=== PATIENT | female | born 1980 | race Caucasian/White ===

== ENCOUNTER 2020-11-26 19:10 | Emergency (ER) | payer BC ==
[~2020-11-26] VITALS: Ht 149.9 cm; Wt 54.4 kg
[2020-11-26 19:14] VITALS: BP 131/69
[2020-11-26 20:42] LABS: APPEARANCE,URINE CLEAR (CLEAR); BILIRUBIN,URINE NEGATIVE (NEGATIVE); BLOOD, URINE NEGATIVE (NEGATIVE); COLOR,URINE YELLOW (YELLOW); LEUKOCYTE ESTERASE ,URINE 1+ (NEGATIVE); NITRITE, URINE NEGATIVE (NEGATIVE); UGLUCOSE NEGATIVE (NEGATIVE)
[2020-11-26 20:55] LABS: RBC,URINE 0-5 /HPF (0-5)
[2020-11-26 21:02] LABS: BASOPHILS % (AUTO) 0.4 % (0.0-2.0); EOSINOPHILS % (AUTO) 0.5 % (0.0-4.0); HEMATOCRIT 36.3 % (36-48); HEMOGLOBIN 11.8 g/dL (12.0-16.0); LYMPHOCYTES # (AUTO) 2.8 K/uL (2.5-16.5); MEAN CORPUSCULAR HEMOGLOBIN 28 pg (27-31); MEAN CORPUSCULAR HGB CONC 33 g/dL (33-37); MEAN CORPUSCULAR VOLUME 84.8 fL (80-94); MONOCYTES # (AUTO) 0.7 K/uL (0.8-1.0); MONOCYTES % (AUTO) 7.3 % (1.7-9.3); NEUTROPHILS # (AUTO) 5.5 K/uL (1.8-7.7); NEUTROPHILS % (AUTO) 60.8 % (42.2-75.2); PLATELET COUNT (AUTO) 335 K/uL (140-450); RED BLOOD CELL COUNT(AUTO) 4.28 MIL/uL (4.20-5.40); RED CELL DISTRIBUTION WIDTH 14.3 % (11.6-13.7)
[2020-11-26 21:18] LABS: ALBUMIN 3.7 g/dL (3.4-5.0); ANION GAP 11.7 (8-16); CREATININE 0.9 mg/dL (0.6-1.3); POTASSIUM 3.7 mmol/L (3.5-5.1); TOTAL BILIRUBIN 0.2 mg/dL (0.0-1.0)
[2020-11-26] MEDS ORDERED: IBUPROFEN 600 MG TAB PO ONE (22:55)
[2020-11-27] MEDS ORDERED: cefTRIAXone 500 MG in LIDOCAINE MPF 1% 1 ML IM ONE (00:05)
[2020-11-27] MEDS ORDERED: cefTRIAXone 500 MG VIAL ONE (00:11)
[2020-11-27] MEDS ORDERED: LIDOCAINE MPF 1% 5 ML ONE (00:12)
[2020-11-27 00:49] VITALS: BP 113/59
== END 2020-11-27 00:49 | disposition home or self-care (01) ==
LOC: MED 19:10
DX: N76.0 Acute vaginitis (principal); B96.89 Other specified bacterial agents as the cause of diseases classified elsewhere; Z88.0 Allergy status to penicillin; Z88.1 Allergy status to other antibiotic agents; Z88.8 Allergy status to other drugs, medicaments and biological substances
CPT/HCPCS: 36415; 74177; 76856; 80053; 81001; 81025; 83690; 85025; 87086; 87210; 93976; 96372; 99285; J0696; J2001; Q9967; 87491

== ENCOUNTER 2020-12-06 12:37 | Emergency (ER) | payer BC ==
[~2020-12-06] VITALS: Ht 149.9 cm; Wt 53.5 kg
[2020-12-06 12:58] VITALS: BP 102/73
--- NOTE | 2020-12-06 13:00 | NUR ---
C/O RIGHT KNEE PAIN 4/10 & SWELLING X 2 DAYS. DENIES TRAUMA. PT GOT COVID VACCINE 2ND DOSE. PMH: DENIES
--- NOTE | 2020-12-06 13:06 | NUR ---
PT AMB TO [facility]
--- NOTE | 2020-12-06 13:25 | NUR ---
Patient returned from x-ray.
[2020-12-06] MEDS ORDERED: IBUPROFEN 600 MG TAB PO ONE (13:45)
--- NOTE | 2020-12-06 14:39 | NUR ---
PT AMB TO BED 11.
--- NOTE | 2020-12-06 15:46 | NUR ---
applied knee immobilizer without any issues. pt demonstrated proper use of crutches
[2020-12-06 17:01] VITALS: BP 102/73
--- NOTE | 2020-12-06 17:02 | NUR ---
Patient discharged with v/s stable. Written and verbal after care instructions given and explained. Patient verbalized understanding. Ambulatory with steady gait. All questions addressed prior to discharge. Advised to follow up with PMD.
== END 2020-12-06 17:02 | disposition home or self-care (01) ==
LOC: MED 12:37
DX: M25.561 Pain in right knee (principal); M25.461 Effusion, right knee; Z88.0 Allergy status to penicillin; Z88.1 Allergy status to other antibiotic agents; Z88.8 Allergy status to other drugs, medicaments and biological substances
CPT/HCPCS: 29515; 73562; 73700; 99284